=== PATIENT | male | born 1950 | race Caucasian/White ===

== ENCOUNTER 2019-09-01 06:46 | Day surgery (SDC) | payer MEDICARE, BC ==
[~2019-09-01 06:46] MED LIST: Lactated Ringers 1,000 ML IV SCH
[2019-09-01] MEDS ORDERED: Lidocaine 1% PF 2 ML SDV INJECT ONE (06:47)
[2019-09-01] MEDS ORDERED: Propofol 200 MG/20 ML SDV IV ONE (06:47)
[2019-09-01 08:47] VITALS: PULSE 66
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
--- NOTE | 2019-09-01 08:48 | PCM.OPNOTE ---
- General Post-Op/Procedure Note Date of Surgery/Procedure: 09/01/19 Operative Procedure(s): Colonoscopy with polypectomy Findings: 2 polyps Pre Op Diagnosis: Hx Polyps Post-Op Diagnosis: Same Anesthesia Technique: MAC Primary Surgeon: Alexander JAMA in mLs: 0 Complications: None Condition: Good
[2019-09-01 09:03] VITALS: BP 148/79
--- NOTE | 2019-09-01 10:51 | OR ---
DATE OF OPERATION: 09/01/2019 SURGEON: Alexander Pike MD PREOPERATIVE DIAGNOSIS: History of colon polyps. POSTOPERATIVE DIAGNOSIS: Colon polyps. PROCEDURE: Colonoscopy with polypectomy. ANESTHESIA: IV sedation. DESCRIPTION OF PROCEDURE: The patient was brought to the procedure room, where he was placed on his left side and IV sedation administered. Digital rectal exam was performed, which was normal. Colonoscope was inserted and advanced to the level of the cecum without difficulty. Cecal position was confirmed by identifying the appendiceal lumen and ileocecal valve. Prep was good and surfaces were well visualized. Upon withdrawing the scope, the ascending, transverse, and descending colon were normal in appearance. The sigmoid colon has a 10 mm semi-pedunculated polyp located 30 cm from the anal verge that was removed with the cautery snare and retrieved in the polyp trap. The rectum has a 6 mm sessile polyp located 10 cm from the anal verge that was also removed with the cautery snare and retrieved in the polyp trap. Retroflexion was normal. Air was removed and the scope withdrawn. The patient tolerated the procedure well and returned to Recovery in stable condition. The patient will be contacted with the pathology report when it returns. I would recommend that he consider one more colonoscopy in 5 years since the sigmoid polyp was obviously adenomatous. /[id number] ABIGAIL/GINA
== END 2019-09-01 09:46 | disposition home or self-care (01) ==
LOC: FB.SDS 06:46
PROVIDERS: ATTEND Surgery
DX: Z12.11 Encounter for screening for malignant neoplasm of colon (principal); D12.5 Benign neoplasm of sigmoid colon; D12.8 Benign neoplasm of rectum; Z86.010 Personal history of colon polyps; Z79.899 Other long term (current) drug therapy; Z87.891 Personal history of nicotine dependence
CPT/HCPCS: 00811; 45385; 88305; J2001; J2704; J7120